=== PATIENT | female | born 1995 | race Caucasian/White ===

== ENCOUNTER 2016-04-30 00:27 | Emergency (ER) | payer SELFPAY ==
[~2016-04-30] VITALS: Ht 162.6 cm; Wt 94.6 kg
[~2016-04-30 00:27] MED LIST: COMBIVENT RESPIM4 GM IH; TYLENOL WITH C1 EACH PO; VENTOLIN HFA18 GM IH
[2016-04-30] MEDS ORDERED: AMOXICILLIN500 MG PO (02:10)
[2016-04-30 02:26] VITALS: BP 148/93
== END 2016-04-30 02:27 | disposition home or self-care (01) ==
LOC: EXP 00:27 → EME 00:27 → EXP 02:27
DX: J02.9 Acute pharyngitis, unspecified (principal); F17.200 Nicotine dependence, unspecified, uncomplicated
CPT/HCPCS: 87651 90; 99281; 99284

== ENCOUNTER 2016-11-19 19:25 | Emergency (ER) | payer SELFPAY ==
[~2016-11-19] VITALS: Ht 162.6 cm; Wt 87.5 kg
[~2016-11-19 19:25] MED LIST changes: +AMOXICILLIN500 MG PO
[2016-11-19 20:45] LABS: INTERNAL CONTROL VALID? YES
[2016-11-19 21:21] VITALS: BP 135/79
== END 2016-11-19 21:22 | disposition home or self-care (01) ==
LOC: EME 19:25
PROVIDERS: Physician Assistant
DX: R51 Headache (principal); W07.XXXA Fall from chair, initial encounter; F17.200 Nicotine dependence, unspecified, uncomplicated
CPT/HCPCS: 84703; 99281; 99283; J1885